=== PATIENT | female | born 1955 | race Caucasian/White ===

== ENCOUNTER 2018-10-22 13:20 | Emergency (ER) | payer OTHER ==
[~2018-10-22] VITALS: Ht 162.6 cm; Wt 52.3 kg
[2018-10-22 14:55] VITALS: BP 141/72
== END 2018-10-22 15:05 | disposition home or self-care (01) | DRG 563 ==
LOC: ED 13:20
DX: S93.402A Sprain of unspecified ligament of left ankle, initial encounter (principal); X50.0XXA Overexertion from strenuous movement or load, initial encounter; Y92.29 Other specified public building as the place of occurrence of the external cause